=== PATIENT | female | born 1950 | race Caucasian/White ===

== ENCOUNTER 2018-01-31 10:24 | Observation (INO) | payer MEDICARE, BC, OTHER ==
[~2018-01-31] VITALS: Ht 167.6 cm; Wt 59.0 kg
[2018-01-31] MEDS ORDERED: SIMV5TAB5 PO (11:02)
[2018-01-31] MEDS ORDERED: LEVO25TA2 PO (11:03)
[2018-01-31] MEDS ORDERED: OLAN2.5T10 PO (11:03)
[2018-01-31] MEDS ORDERED: MORPHINE SULFATE 4 MG/ML, 1ML ONE (11:36)
[2018-01-31] MEDS ORDERED: ZIPRASIDONE 20 MG INJ IM ONE (12:22)
[2018-01-31] MEDS ORDERED: ZIPRASIDONE 20MG CAPSULE ONE (12:34)
[2018-01-31] MEDS ORDERED: ZIPRASIDONE 20MG CAPSULE PO STA (12:34)
[2018-01-31 12:49] LABS: BASOPHILS # (AUTO) 0.01 x10^3/uL (0-0.1); BASOPHILS % (AUTO) 0 % (0-1); EOSINOPHILS # (AUTO) 0.01 x10^3/uL (0-0.4); EOSINOPHILS % (AUTO) 0 % (1-7); LYMPHOCYTES # (AUTO) 1.82 x10^3/uL (1-3.4); LYMPHOCYTES % (AUTO) 18 % (22-44); MD NO; MEAN CORPUSCULAR HEMOGLOBIN 30.3 pg (27.0-34.8); MEAN CORPUSCULAR HGB CONC 34.2 g/dL (32.4-35.8); MEAN CORPUSCULAR VOLUME 88.5 fL (80-100); MEAN PLATELET VOLUME 8.4 fL (7.4-10.4); MONOCYTES # (AUTO) 0.49 x10^3/uL (0.2-0.8); MONOCYTES % (AUTO) 5 % (2-9); NEUTROPHILS # (AUTO) 8.04 x10^3/uL (1.8-6.8); NEUTROPHILS % (AUTO) 78 % (42-75); PLATELET COUNT 197 x10^3/uL (130-400); RED BLOOD COUNT 4.77 x10^6/uL (3.82-5.3); RED CELL DISTRIBUTION WIDTH 13.1 % (9.6-15.2)
[2018-01-31 13:02] LABS: ALBUMIN 4.2 g/dL (3.4-5.0); ANION GAP 7 mmol/L (5-15); CALCIUM 9.1 mg/dL (8.5-10.1); CHLORIDE 108 mmol/L (98-107)
[2018-01-31 13:05] LABS: ALANINE AMINOTRANSFERASE 37 U/L (12-78); ALKALINE PHOSPHATASE 76 U/L (45-117); BILIRUBIN,TOTAL 0.6 mg/dL (0.2-1.0); CREATININE 0.78 mg/dL (0.55-1.02); SALICYLATE LEVEL 2.6 mg/dL (2.8-20.0); TOTAL PROTEIN 7.2 g/dL (6.4-8.2)
[2018-01-31 13:10] LABS: ACETAMINOPHEN < 2 mcg/mL (10-30)
[2018-01-31 16:22] LABS: AMPHETAMINE SCREEN, URINE Negative (Negative); BARBITURATE SCREEN, URINE Negative (Negative); BENZODIAZEPINE SCREEN, URINE Negative (Negative); CANNABINOID SCREEN, URINE Negative (Negative); COCAINE SCREEN, URINE Negative (Negative); METHADONE SCREEN, URINE Negative (Negative); OPIATE SCREEN, URINE Negative (Negative)
[2018-01-31] MEDS ORDERED: ACETAMINOPHEN 325 MG TABLET PO PRN (18:00)
[2018-01-31] MEDS ORDERED: OLANZAPINE 2.5 MG TABLET PO SCH (18:00)
[2018-01-31] MEDS ORDERED: ONDANSETRON 2MG/ML, 2ML IVPush PRN (18:00)
[2018-01-31] MEDS ORDERED: SIMVASTATIN 5 MG TABLET PO SCH (21:00)
[2018-01-31] MEDS ORDERED: OLANZAPINE 2.5 MG TABLET ONE (21:50)
[2018-02-01] MEDS ORDERED: LEVOTHYROXINE 25 MCG TABLET PO SCH (06:00)
[2018-02-01] MEDS ORDERED: SODIUM CHLORIDE 0.9% 1,000 ML IV SCH (07:00)
[2018-02-01 07:22] VITALS: BP 107/59
== END 2018-02-01 08:37 ==
LOC: EDSEX 10:24 → ED 11:10 → EDIP 17:24
PROVIDERS: ADMIT Internal Medicine; ATTEND Internal Medicine
DX: S09.90XA Unspecified injury of head, initial encounter (principal); R41.82 Altered mental status, unspecified; E03.9 Hypothyroidism, unspecified; E78.00 Pure hypercholesterolemia, unspecified; E78.5 Hyperlipidemia, unspecified; I10 Essential (primary) hypertension; W01.0XXA Fall on same level from slipping, tripping and stumbling without subsequent striking against object, initial encounter; Y93.01 Activity, walking, marching and hiking; F32.9 Major depressive disorder, single episode, unspecified; F10.99 Alcohol use, unspecified with unspecified alcohol-induced disorder
CPT/HCPCS: 36415; 70450; 72110; 80053; 80307; 80329; 85025; 93005; 99285; G0378; G0480